=== PATIENT | female | born 2000 | race Two or more races ===

== ENCOUNTER 2023-11-26 14:27 | Inpatient (IN) | payer SELFPAY ==
[~2023-11-26] VITALS: Ht 170.2 cm; Wt 63.0 kg
[2023-11-26 15:51] LABS: BASOPHILS % 0.1 % (0.0-2.0); DIFFERENTIAL COMMENT 0; EOSINOPHILS % 0.1 % (0.0-5.0); HEMATOCRIT. 21.9 % (36.0-48.0); HEMOGLOBIN. 7.7 g/dL (12.0-16.0); LYMPHOCYTES % 18.2 % (20.0-50.0); MEAN CORPUSCULAR HEMOGLOBIN 25.3 pg (28.0-32.0); MEAN CORPUSCULAR VOLUME 72.2 fL (81.0-99.0); MEAN PLATELET VOLUME 9.6 fl (7.4-10.4); MONOCYTES % 4.9 % (2.0-8.0); NEUTROPHILS % 76.7 % (40.0-76.0); PLATELET 276 x1000/uL (130-400); RED BLOOD CELL COUNT 3.03 mill/uL (4.2-5.4); RED CELL DISTRIBUTION WIDTH 13.7 % (11.6-14.6); WHITE BLOOD COUNT 10.3 x1000/uL (4.5-11.0)
[2023-11-26 16:09] LABS: ALANINE AMINOTRANSFERASE 17 IU/L (10-49); ALBUMIN 3.3 g/dL (3.2-4.8); ASPARTATE AMINOTRANSFERASE 16 IU/L (<34); BILIRUBIN TOTAL 0.2 mg/dL (0.1-1.0); CALCIUM 8.5 mg/dL (8.7-10.4); CARBON DIOXIDE 22 mEq/L (21-32); CHLORIDE 104 mEq/L (98-107); CREATININE 0.4 mg/dL (0.6-1.0); GLUCOSE 129 mg/dL (70-105); POTASSIUM 3.4 mEq/L (3.5-5.1); PROTEIN TOTAL 6.2 g/dL (6.0-8.3); SODIUM 137 mEq/L (136-145); UREA NITROGEN BLOOD 13 mg/dL (9-23)
[2023-11-26] MEDS ORDERED: ONDANSETRON 4MG ODT PO ONE (22:45)
[2023-11-26] MEDS ORDERED: KETOROLAC 15MG/ML VIAL IM ONE (22:45)
[2023-11-27 00:15] LABS: HCG SCREEN POSITIVE
[2023-11-27] MEDS ORDERED: ONDANSETRON HCL 4MG/2ML INJ IV ONE ×2 (00:45→04:00)
[2023-11-27] MEDS ORDERED: SODIUM CHLORIDE 0.9% 1,000 ML IV ONE (00:45)
[2023-11-27 01:31] LABS: BASOPHILS % 0.3 % (0.0-2.0); DIFFERENTIAL COMMENT 0; EOSINOPHILS % 0.2 % (0.0-5.0); MEAN CORPUSCULAR HEMOGLOBIN 24.6 pg (28.0-32.0); MEAN CORPUSCULAR HGB CONC 33.9 g/dL (31.0-37.0); MEAN CORPUSCULAR VOLUME 72.7 fL (81.0-99.0); MEAN PLATELET VOLUME 9.4 fl (7.4-10.4); MONOCYTES % 8.3 % (2.0-8.0); NEUTROPHILS % 72.2 % (40.0-76.0); PLATELET 171 x1000/uL (130-400); RED BLOOD CELL COUNT 2.43 mill/uL (4.2-5.4); RED CELL DISTRIBUTION WIDTH 13.7 % (11.6-14.6); WHITE BLOOD COUNT 9.2 x1000/uL (4.5-11.0)
[2023-11-27 01:42] LABS: HEMATOCRIT. 17.6 % (36.0-48.0)
[2023-11-27] MEDS ORDERED: MISOPROSTOL 200MCG TABLET PO SCH ×2 (02:30→08:20)
[2023-11-27] MEDS: MISOPROSTOL 200MCG TABLET RC SCH ×2 (04:19→13:20)
[2023-11-27] MEDS ORDERED: METOCLOPRAMIDE HCL 10MG/2ML VIAL IV ONE (05:00)
[2023-11-27] MEDS ORDERED: GUAIFENESIN 200MG/10ML SUGAR FREE UDC PO PRN (05:30)
[2023-11-27] MEDS ORDERED: MAGNESIUM/ALUMINUM HYDROXIDE/SIMETHICONE 30ML UDC PO PRN (05:30)
[2023-11-27] MEDS ORDERED: CLONIDINE 0.1MG TABLET PO PRN (05:30)
[2023-11-27] MEDS ORDERED: ACETAMINOPHEN 325MG TABLET PO PRN ×2 (05:30)
[2023-11-27] MEDS ORDERED: ONDANSETRON HCL 4MG/2ML INJ IV PRN (05:30)
[2023-11-27] MEDS ORDERED: IPRATROPIUM/ALBUTEROL 0.5-3(2.5)MG/3ML NEB HHN PRN (05:30)
[2023-11-27] MEDS ORDERED: DOCUSATE SODIUM 100MG CAPSULE PO PRN (05:30)
[2023-11-27] MEDS ORDERED: POTASSIUM CHLORIDE 20MEQ TABLET SR PO NR ×2 (05:45→09:45)
[2023-11-27] MEDS ORDERED: KETOROLAC 15MG/ML VIAL IV PRN (06:15)
[2023-11-27 06:53] LABS: CREATINE KINASE 28 IU/L (34-145); IRON 37 ug/dL (50-170); TOTAL IRON BINDING CAPACITY 176 ug/dl (250-425); TROPONIN I HIGH SENSITIVITY 5 ng/L (3.0-34)
[2023-11-27 06:55] LABS: FOLIC ACID (FOLATE) SERUM 18.61 ng/mL (>5.38); VITAMIN B12 SERUM 445 pg/mL (211-911)
[2023-11-27 07:12] LABS: CREATINE KINASE MB FRACTION < 0.0 ng/mL (0.5-3.6)
[2023-11-27 08:00] VITALS: BP 128/39; PULSE 81; RESP 18; TEMP 96.8
[2023-11-27] MEDS: FAMOTIDINE 20MG/2ML VIAL IV SCH (09:00)
[2023-11-27 16:00] VITALS: BP 143/71; PULSE 102; RESP 20; TEMP 98.3
[2023-11-27 16:29] VITALS: BP 143/71; PULSE 103; RESP 20; TEMP 98.3
[2023-11-27 20:00] VITALS: BP 110/62; PULSE 103; RESP 20; TEMP 99.9
[2023-11-27 22:01] LABS: MEAN CORPUSCULAR HEMOGLOBIN 26.3 pg (28.0-32.0); MEAN CORPUSCULAR HGB CONC 33.3 g/dL (31.0-37.0); MEAN CORPUSCULAR VOLUME 79.2 fL (81.0-99.0); PLATELET 157 x1000/uL (130-400); RED BLOOD CELL COUNT 2.62 mill/uL (4.2-5.4); WHITE BLOOD COUNT 8.8 x1000/uL (4.5-11.0)
[2023-11-27 22:05] LABS: HEMATOCRIT 20.7 % (36.0-48.0); HEMOGLOBIN 6.9 g/dL (12.0-16.0)
[2023-11-27 22:22] LABS: CALCIUM 8.1 mg/dL (8.7-10.4); CARBON DIOXIDE 25 mEq/L (21-32); CHLORIDE 105 mEq/L (98-107); CREATINE KINASE 32 IU/L (34-145); CREATININE 0.4 mg/dL (0.6-1.0); GLUCOSE 107 mg/dL (70-105); POTASSIUM 3.8 mEq/L (3.5-5.1); SODIUM 135 mEq/L (136-145); UREA NITROGEN BLOOD 10 mg/dL (9-23)
[2023-11-27 22:37] LABS: CREATINE KINASE MB FRACTION < 0.0 ng/mL (0.5-3.6); TROPONIN I HIGH SENSITIVITY < 4 ng/L (3.0-34)
[2023-11-28] VITALS (12 sets, daily range): BP systolic 103–137; BP diastolic 59–117; PULSE 78–100; RESP 18–20; TEMP 96.9–98.7; O2SAT 78
[2023-11-28 08:23] LABS: BASOPHILS % 0.2 % (0.0-2.0); DIFFERENTIAL COMMENT 0; EOSINOPHILS % 0.7 % (0.0-5.0); HEMATOCRIT. 26.2 % (36.0-48.0); HEMOGLOBIN. 8.9 g/dL (12.0-16.0); LYMPHOCYTES % 24.6 % (20.0-50.0); MEAN CORPUSCULAR HEMOGLOBIN 27.1 pg (28.0-32.0); MEAN CORPUSCULAR VOLUME 79.9 fL (81.0-99.0); MEAN PLATELET VOLUME 10.1 fl (7.4-10.4); MONOCYTES % 8.4 % (2.0-8.0); NEUTROPHILS % 66.1 % (40.0-76.0); PLATELET 151 x1000/uL (130-400); RED BLOOD CELL COUNT 3.28 mill/uL (4.2-5.4); RED CELL DISTRIBUTION WIDTH 17.7 % (11.6-14.6); WHITE BLOOD COUNT 8.8 x1000/uL (4.5-11.0)
[2023-11-28 08:32] LABS: ALANINE AMINOTRANSFERASE 15 IU/L (10-49); ASPARTATE AMINOTRANSFERASE 21 IU/L (<34); B-HCG QUANTITATIVE 4036 mIU/mL (<3); BILIRUBIN TOTAL 0.3 mg/dL (0.1-1.0); CALCIUM 8.6 mg/dL (8.7-10.4); CARBON DIOXIDE 21 mEq/L (21-32); CHLORIDE 108 mEq/L (98-107); CHOLESTEROL 112 mg/dL (<200); CREATININE 0.4 mg/dL (0.6-1.0); GLUCOSE 91 mg/dL (70-105); HDL CHOLESTEROL 31 mg/dL (>65); LDL CHOLESTEROL 60 mg/dL (5-100); POTASSIUM 4.5 mEq/L (3.5-5.1); PROTEIN TOTAL 5.5 g/dL (6.0-8.3); SODIUM 137 mEq/L (136-145); T4 FREE 2.41 ng/dL (0.89-1.76); THYROID STIMULATING HORMONE < 0.10 uIU/mL (0.55-4.78); TRIGLYCERIDE 60 mg/dL (0-150); UREA NITROGEN BLOOD 13 mg/dL (9-23)
[2023-11-28] MEDS: FAMOTIDINE 20MG/2ML VIAL IV SCH (08:44)
[2023-11-28] MEDS ORDERED: FERR-63 PO (11:11)
[2023-11-28] MEDS ORDERED: IRON SUCROSE COMPLEX 100 MG/5 ML ML IV NR (11:15)
[2023-11-28] MEDS ORDERED: MIDAZOLAM HCL 2 MG/2 ML VIAL ONE (22:09)
[2023-11-28] MEDS ORDERED: FENTANYL CITRATE/PF 50MCG/ML 2ML VIAL ONE (22:17)
[2023-11-28] MEDS ORDERED: LIDOCAINE HCL 1% 10 MG/ML 10ML VIAL ONE (22:31)
[2023-11-28] MEDS ORDERED: DEXAMETHASONE 4MG/ML 1ML VIAL ONE (22:31)
[2023-11-28] MEDS ORDERED: CEFAZOLIN SODIUM 1000MG/VIAL ONE (22:31)
[2023-11-28] MEDS ORDERED: ONDANSETRON HCL 4MG/2ML INJ ONE (22:31)
[2023-11-28] MEDS ORDERED: MEPERIDINE HCL/PF 25MG/ML CPJ IV PRN (23:00)
[2023-11-28] MEDS ORDERED: ONDANSETRON HCL 4MG/2ML INJ IV PRN (23:00)
[2023-11-28] MEDS ORDERED: HYDROMORPHONE HCL/PF 2MG/ML CPJ IV PRN (23:00)
[2023-11-28] MEDS ORDERED: FENTANYL CITRATE/PF 50MCG/ML 2ML VIAL IV PRN (23:00)
[2023-11-29 00:52] VITALS: BP 118/70; PULSE 80; RESP 18; TEMP 97.7
[2023-11-29 04:00] VITALS: BP 118/62; PULSE 81; RESP 18; TEMP 98.1
[2023-11-29 08:00] VITALS: BP 113/60; PULSE 85; RESP 16; TEMP 97.3
[2023-11-29] MEDS: FAMOTIDINE 20MG/2ML VIAL IV SCH (08:46)
[2023-11-29 10:22] VITALS: BP 113/60; PULSE 85; TEMP 97.3; O2SAT 85
[2023-11-29] MEDS ORDERED: FERROUS SULFATE 325MG TABLET PO SCH (18:10)
== END 2023-11-29 13:00 | disposition home or self-care (01) | DRG 547 ==
LOC: ER 14:27 → 7WST 11-27 03:29 → EDBEDREQTM 11-27 03:34 → EDBEDREQSVC 11-27 03:34 → EDBEDREQ 11-27 03:34 → EDBEDREQSVC 11-27 12:22
PROVIDERS: ADMIT Internal Medicine; ATTEND Internal Medicine
PROC: 30233N1 Transfusion of Nonautologous Red Blood Cells into Peripheral Vein, Percutaneous Approach (ICD-10-PCS; 2023-11-27)
PROC: 10D17ZZ Extraction of Products of Conception, Retained, Via Natural or Artificial Opening (ICD-10-PCS; principal; 2023-11-28)
DX: O20.0 Threatened abortion (principal); D62 Acute posthemorrhagic anemia; E87.6 Hypokalemia
CPT/HCPCS: 36415; 76705; 76801; 80048; 80053; 80061; 82550; 82553; 82607; 82746; 83540; 83550; 83735; 84439; 84443; 84484; 84702; 84703; 85025; 85027; 86850; 86900; 86920; 88305; 99285; J0690; J1100; J2250; J2405; J2765; J3010; J3490; J7030; P9016